=== PATIENT | female | born 1970 | race Caucasian/White ===

== ENCOUNTER → 2016-07-08 | Outpatient (CLI) | payer OTHER | LOC: FIMAGING 11:26 | PROVIDERS: ATTEND Orthopaedic Surgery Orthopaedic Surgery of the Spine | DX: M50.323 Other cervical disc degeneration at C6-C7 level (principal) ==

== ENCOUNTER 2017-09-13 13:49 | Emergency (ER) | payer SELFPAY ==
[2017-09-13 13:53] VITALS: BP 108/70
--- NOTE | 2017-09-13 14:02 | EDPHY ---
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 This this accident occurred while she was working at the [employer] She reports that only a few droplets got into her left eye she felt immediate burning pain. She flushed it with cool water with improvement of burning. Patient denies any visual floaters/ocular discharge/ocular pain. Unsure of tetanus status. Modifying Factors: Rinse Comment: ROS: see HPI Constitutional: No fever, no chills, no weight loss Eyes: No blurred vision Respiratory: No shortness of breath, no cough Cardiovascular: No chest pain Gastrointestinal: No nausea, no vomiting, no diarrhea Genitourinary: No dysuria Extremities: No myalgias Neurologic: No weakness, no numbness Skin: No rashes Hematologic: No bruising, no bleeding MEDICAL/SURGICAL/SOCIAL HISTORY: Medical history: Pyloric stenosis. Surgical history: Orthopedic surgery Social history: Employed. Family history noncontributory. General appearance: Well-developed, well-nourished, middle-aged white female, polite and cooperative, no distress Visual Acuity: noted from Nurse's notes. Pupils: equal round and reactive to light. EOMI. Lids: no edema or swelling Skin: no proptosis, no periorbital erythema or swelling, no vesicles Conjunctivae: not injected, no discharge Cornea: exam with fluorescein shows no uptake Anterior chamber: normal, no hyphema or hypopyon Source: Patient Exam Limitations: No limitations - Personal History LMP (Females 10-55): Over 28 Days Ago Current Tetanus Diphtheria and Acellular Pertussis (TDAP): Unsure - Medical/Surgical History Other PMH: PYLORIC STENOSIS, ORTH SURGERIES - Social History Smoking Status: Never smoked Constitutional: Initial Vital Signs Temperature (C) 36.6 C 09/13/17 13:51 Heart Rate 67 04/29/18 13:51 Respiratory Rate 16 09/13/17 13:51 Blood Pressure 108/70 09/13/17 13:51 O2 Sat (%) 96 09/13/17 13:51 O2 Delivery Mode Room Air Allergies/Adverse Reactions: Sulfa (Sulfonamide Antibiotics) Allergy (Verified 09/13/17 13:51) Home Medications: Medication Instructions Recorded NK [No Known Home Meds] 09/13/17 Medical Decision Making ED Course/Re-evaluation: Patient flushed with 1 L of normal saline Tetanus booster given. No signs of corneal abrasion/anterior chamber injury Advised supportive care and Ophthalmology follow-up This patient was seen under the supervision of my secondary supervising physician. I evaluated care for this patient independently. Differential Diagnosis: Differential diagnosis includes but is not limited to chemical conjunctivitis, uveitis, iritis. Departure - Departure Disposition: Home, Routine, Self-Care Clinical Impression: Chemical conjunctivitis of left eye Condition: Good Instructions: Conjunctivitis (ED) Additional Instructions: Do not rub your eye. Apply cool compresses for 10-15 minutes at a time 2-3 times per day for the next 1-2 days. Take Tylenol 650 mg every 4 hr and/or ibuprofen 600 mg every 8 hr as needed for pain. Wear sunglasses for the next 24 hr as URI may be sensitive to light. Follow-up with Ophthalmology for any increase in eye pain, redness, swelling, discharge or any worsening of your vision. Referrals: Aniceto Hull MD [Medical Doctor] - As per Instructions
[2017-09-13] MEDS ORDERED: TDAP ADULT 0.5 ML INJ (BOOSTRIX) IM ONE (14:16)
[2017-09-13] MEDS ORDERED: FLUORESCEIN SOD/BENOXINATE HCL 20 DROPS/ML OPHT.BTL OP ONE (14:16)
== END 2017-09-13 14:42 | disposition home or self-care (01) ==
DX: H10.212 Acute toxic conjunctivitis, left eye (principal); T65.891A Toxic effect of other specified substances, accidental (unintentional), initial encounter